=== PATIENT | male | born 1960 | race Two or more races ===

== ENCOUNTER 2024-09-15 02:20 | Emergency (ER) | payer BC, SELFPAY ==
[2024-09-15 02:21] VITALS: BMI 28.3
[2024-09-15 02:39] VITALS: BP 116/76; PULSE 80; RESP 16; TEMP 37.3; O2SAT 98
--- NOTE | 2024-09-15 03:20 | PD.EDADULT ---
ED General RME/HPI General Chief complaint: General Adult/Misc Complain Stated complaint: SWEATING X 1WK Time Seen by Provider: 09/15/24 02:58 Arrival date/time: 09/15/24 02:20 Related Data Previous Rx's ?Medication ?Instructions ?Recorded Hydrocodone/Acetaminophen * (NORCO 1 tab PO Q6H PRN PAIN #30 tabs 08/23/15 7.5/325 *) Allergies Allergy/AdvReac Type Severity Reaction Status Date / Time NKA* Allergy Uncoded 08/22/15 11:38 Course Vital Signs Vital signs: Vital Signs Temperature 99.1 F 09/15/24 02:39 Pulse Rate 80 09/15/24 02:39 Respiratory Rate 16 09/15/24 02:39 Blood Pressure 116/76 09/15/24 02:39 Pulse Oximetry (%) 98 09/15/24 02:39 Oxygen Delivery Method Room Air 09/15/24 02:39 Discharge Plan Prescriptions/Referrals Prescriptions/Med Rec: No Action Hydrocodone/Acetaminophen * (NORCO 7.5/325 *) 1 TAB tablet 1 tab PO Q6H PRN (Reason: PAIN) Qty: 30 0RF Referrals: Temporary Provider,ED [Primary Care Provider] - In 1 week Patient/Caregiver Discharge Instructions Print Language: Czech
--- NOTE | 2024-09-15 03:21 | XR_ITS ---
Examination: AP chest single view Technique AP portable upright chest single view Date and time: September 15, 2024 0420 hours Comparison November 27, 2019 INDICATIONS: Chest pain today. FINDINGS: Normal heart size Lungs are clear and The osseous structures are intact IMPRESSION: No active disease
--- NOTE | 2024-09-15 03:24 | EDRME_ITS ---
Rapid Medical Screening Exam RME Arrival date/time: 09/15/24 02:20 Chief Complaint: General Adult/Misc Complain Time Seen by Provider: 09/15/24 02:58 Vital signs: Vital Signs Temperature 99.1 F 09/15/24 02:39 Pulse Rate 80 09/15/24 02:39 Respiratory Rate 16 09/15/24 02:39 Blood Pressure 116/76 09/15/24 02:39 Pulse Oximetry (%) 98 09/15/24 02:39 Oxygen Delivery Method Room Air 09/15/24 02:39 Vital signs reviewed by provider: Yes RME Narrative: 64-year-old male presents to the ED with a complaint of diaphoresis for the past week, chest pain for the past 3 days. The pain is located anterior left chest with radiation to multiple areas of his chest. states he has been anxious lately but does not know if it is related to his Parkinson's. He denies any nausea or vomiting, shortness of breath. The patient saw his primary care physician on Saturday due to the chest pain but said he was fine, but did not order any specific testing or send him to a hot plate plywood press laborer for further workup and evaluation..
[2024-09-15 04:21] VITALS: BP 120/76; PULSE 75; RESP 18; TEMP 37.2; O2SAT 99
[2024-09-15 04:29] LABS: Basophils % (Auto) 1 % (0-2.5); Eosinophils # (Auto) 0.1 Thou/mm3 (0.0-0.5); Eosinophils % (Auto) 1 % (0-10); Hematocrit 45.1 % (41.0-53.0); Hemoglobin 15.5 g/dL (13.5-16.0); Immature Granulocytes % (Auto) 0 % (0-0); Immature Granulocytes Auto 0.03 Thou/mm3 (0.00-0.00); Lymphocytes # (Auto) 1.3 Thou/mm3 (1.0-4.8); Lymphocytes % (Auto) 17 % (10-50); Mean Corpuscular HGB Conc 34.4 g/dl (31.0-37.0); Mean Corpuscular Hemoglobin 29.9 pg (25.0-35.0); Mean Corpuscular Volume 87 fL (80-100); Monocytes # (Auto) 0.6 Thou/mm3 (0.0-0.8); Monocytes % (Auto) 8 % (0-12); Neutrophils # (Auto) 5.6 Thou/mm3 (1.8-7.7); Neutrophils % (Auto) 73 % (37-80); Nucleated Red Blood Cell % 0 /100 WBC (0); Platelet Count 240 Thou/mm3 (140-440); RDW Standard Deviation 37.4 fL (35.1-43.9); Red Blood Count 5.19 Miln/mm3 (4.50-5.90); White Blood Count 7.7 Thou/mm3 (3.8-10.6)
[2024-09-15 04:43] LABS: Partial Thromboplastin Time 35.9 Seconds (22.0-36.0); Prothrombin Time 10.6 Seconds (9.0-12.2)
[2024-09-15 04:46] LABS: Collection Type, Urine Clean Catch; Squamous Epithelial Cell,Urine 0 /hpf (0-5)
[2024-09-15 04:53] LABS: B-Type Natriuretic Peptide < 20 pg/mL (0-100)
[2024-09-15 04:59] LABS: Alanine Aminotransferase < 7 U/L (10-49); Albumin, Serum 4.7 gm/dL (3.4-4.8); Albumin/Globulin Ratio 1.5 (1.2-2.2); Alkaline Phosphatase 73 U/L (46-116); Anion Gap 10 (7-16); Aspartate Amino Transferase 23 U/L (0-34); BUN/Creatinine Ratio 8 Ratio (12-20); Bilirubin,Total 0.9 mg/dL (0.3-1.2); Blood Urea Nitrogen 9 mg/dL (9-23); Calcium 9.2 mg/dL (8.3-10.6); Calcium (Corrected) 9.2 mg/dL (8.5-10.1); Carbon Dioxide 28.4 mMol/L (20.0-31.0); Chloride 100 mMol/L (98-107); Creatine Kinase 133 U/L (34-171); Creatinine (Component) 1.2 mg/dL (0.6-1.3); Estimated Creatinine Clearance 55.6 mL/min (>60); Globulin 3.1 gm/dL (2.3-3.5); Glucose 116 mg/dL (74-106); LDH (Lactate Dehydrogenase) 148 U/L (120-246); Magnesium 1.9 mg/dL (1.6-2.6); Osmolality,Calculated 275 (275-295); Sodium 138 mMol/L (136-145); Total Protein 7.8 gm/dL (5.7-8.2); Troponin I < 0.020 ng/mL (0.0-0.045); eGFR > 60 See Note
[2024-09-15 05:15] LABS: Bilirubin,Urine Negative (Negative); Blood,Urine Negative (Negative); Clarity,Urine Clear (Clear/Hazy); Color,Urine Lt-Yellow (Lt Yel-Yel); Glucose, Urine Negative (Negative); Ketones,Urine Negative (Negative); Leukocyte Esterase,Urine Negative (Negative); Nitrite,Urine Negative (Negative); PH,Urine 6.5 (5.0-7.0); Protein,Urine Negative (Neg - Trace); RBC,Urine 3 /hpf (0-3); Renal Epithelial Cells,Urine 6 /hpf (0-5); Specific Gravity,Urine 1.014 (1.001-1.035); Urobilinogen,Urine Negative mg/dL (0.0-1.0); WBC,Urine 4 /hpf (0-5)
[2024-09-15 06:00] VITALS: BP 121/67; PULSE 78; RESP 18; TEMP 37.1; O2SAT 99
--- NOTE | 2024-09-15 06:03 | EDRME_ITS ---
Rapid Medical Screening Exam RME Arrival date/time: 09/15/24 02:20 Chief Complaint: General Adult/Misc Complain Time Seen by Provider: 09/15/24 02:58 Vital signs: Vital Signs Temperature 99.1 F 09/15/24 02:39 Pulse Rate 80 09/15/24 02:39 Respiratory Rate 16 09/15/24 02:39 Blood Pressure 116/76 09/15/24 02:39 Pulse Oximetry (%) 98 09/15/24 02:39 Oxygen Delivery Method Room Air 09/15/24 02:39 RME Narrative: 64-year-old male presents to the ED with a complaint of diaphoresis for the past week, chest pain for the past 3 days. The pain is located anterior left chest with radiation to multiple areas of his chest. states he has been anxious lately but does not know if it is related to his Parkinson's. He denies any nausea or vomiting, shortness of breath. The patient saw his primary care physician on Saturday due to the chest pain but said he was fine, but did not order any specific testing or send him to a information technology security manager for further workup and evaluation..
--- NOTE | 2024-09-15 06:07 | PD.EDADULT ---
ED General RME/HPI General Chief complaint: General Adult/Misc Complain Stated complaint: SWEATING X 1WK Time Seen by Provider: 09/15/24 02:58 Arrival date/time: 09/15/24 02:20 64-year-old male presents to the ED with a complaint of diaphoresis for the past week, chest pain for the past 3 days. The pain is located anterior left chest with radiation to multiple areas of his chest. states he has been anxious lately but does not know if it is related to his Parkinson's. He denies any nausea or vomiting, shortness of breath. The patient saw his primary care physician on Saturday due to the chest pain but said he was fine, but did not order any specific testing or send him to a multimedia authoring specialist for further workup and evaluation. Limitations: no limitations RME / HPI RME / HPI narrative: 64-year-old male presents to the ED with a complaint of diaphoresis for the past week, chest pain for the past 3 days. The pain is located anterior left chest with radiation to multiple areas of his chest. states he has been anxious lately but does not know if it is related to his Parkinson's. He denies any nausea or vomiting, shortness of breath. The patient saw his primary care physician on Saturday due to the chest pain but said he was fine, but did not order any specific testing or send him to a multimedia authoring specialist for further workup and evaluation.. Related Data Previous Rx's ?Medication ?Instructions ?Recorded Hydrocodone/Acetaminophen * (NORCO 1 tab PO Q6H PRN PAIN #30 tabs 08/23/15 7.5/325 *) Allergies Allergy/AdvReac Type Severity Reaction Status Date / Time NKA* Allergy Uncoded 08/22/15 11:38 Review of Systems Review of Systems Systems Reviewed: All systems reviewed, normal except as documented ED Exam Narrative Physical exam: Alert and oriented 64-year-old male in no acute distress. Lungs are clear, regular rate and rhythm without murmurs. Abdomen is soft and nontender. No edema to the lower extremities. General Limitations: Present no limitations General appearance: Present alert and in no apparent distress Course Quality Measures none Orders Category Date Time Status XR chest 1V portable Stat Exams 09/15/24 03:21 Taken B-Type Natriuretic Peptide Stat Lab 09/15/24 04:20 Completed CBC Stat Lab 09/15/24 04:20 Completed CK [Creatine Kinase] Stat Lab 09/15/24 04:20 Completed Comprehensive Metabolic Panel Stat Lab 09/15/24 04:20 Completed LDH (Lactate Dehydrogenase) Stat Lab 09/15/24 04:20 Completed Magnesium Stat Lab 09/15/24 04:20 Completed Partial Thromboplastin Time Stat Lab 09/15/24 04:20 Completed Prothrombin Time with INR Stat Lab 09/15/24 04:20 Completed Troponin I Stat Lab 09/15/24 04:20 Completed Urinalysis Stat Lab 09/15/24 04:40 Completed Vital Signs Vital signs: Vital Signs Temperature 99.1 F 09/15/24 02:39 Pulse Rate 80 09/15/24 02:39 Respiratory Rate 16 09/15/24 02:39 Blood Pressure 116/76 09/15/24 02:39 Pulse Oximetry (%) 98 09/15/24 02:39 Oxygen Delivery Method Room Air 09/15/24 02:39 Discharge Plan Plan Patient Disposition: HOME (Self Care) Discharge Disposition comment: Stable and improved Prescriptions/Referrals Prescriptions/Med Rec: No Action Hydrocodone/Acetaminophen * (NORCO 7.5/325 *) 1 TAB tablet 1 tab PO Q6H PRN (Reason: PAIN) Qty: 30 0RF Referrals: Leticia Llamas MD [Physician] - In 1 week (Contact Dr. Llamas's office to schedule an appointment. Make sure to ask if your insurance is excepted.) Temporary Provider,ED [Physician] - In 1 week Problem List Clinical Impression: Chest pain of unknown etiology Patient/Caregiver Discharge Instructions Education Materials: ED Chest Pain, Uncertain Cause Additional Instructions: You will need further workup and evaluation by a multimedia authoring specialist to determine the exact cause of your chest pain. The workup includes stress test, nuclear scan of your heart, and echocardiogram. Follow-up with your primary care physician in 24 to 48 hours. Return to the ED for any new or worsening symptoms. Print Language: Maldivian Stand Alone Forms: Georgina Award Info., Patient Portal Info Letter PA/ELECTRONIC TEST TECHNICIAN Supervising Physician PA/ELECTRONIC TEST TECHNICIAN Supervising Physician: Dr. Comfort DIAZ Clinical Information Provided by: patient and spouse Medical Records reviewed None Meds/Rx considered, not ordered None Labs/Rad/Tests considered, not ordered None Chronic Illness/Social Conditions which may negatively complicate care or outcome(s)-explain: other (Parkinsonism) EKG Interpretation EKG #1: EKG Interpretation: Sinus rhythm without ectopy or ST/T wave changes, And no STEMI, rate 79, DC interval 143, QRS 82, QT/QTc 346/381. Labs Labs: Interpreted by mt Lab(s) Interpretation(s): CBC reveals a normal white count, normal H and H, normal platelets. Coags are normal. Chemistry panel reveals normal electrolytes with the exception of glucose 116 otherwise normal. LDH is normal at 148, CK normal at 133, troponin is less than 0.020, BNP is less than 20. Urinalysis is normal with the exception of renal epithelial cells x 6. Imaging Imaging interpretation: Interpreted by mt Imaging Interpretation(s): No infiltrates and no evidence of CHF. Medication Administration(s) none Diagnosis Differential Diagnosis ED Complaint MDM: ACS, CHF, pneumonia, chest wall pain, anxiety Diagnoses ruled out and/or further discussions: ACS, CHF, pneumonia
== END 2024-09-15 06:32 | disposition home or self-care (01) ==
PROVIDERS: Physician Assistant; Emergency Provider Emergency Medicine; PCP Internal Medicine
DX: R07.9 Chest pain, unspecified (principal); R61 Generalized hyperhidrosis
CPT/HCPCS: 36415; 71045; 80053; 81001; 82550; 83615; 83735; 83880; 84484; 85025; 85610; 85730; 99283

== ENCOUNTER 2025-02-12 20:44 | Emergency (ER) | payer MEDICARE, MEDICAID, SELFPAY ==
[2025-02-12 20:46] VITALS: BMI 22.1
--- NOTE | 2025-02-12 20:49 | EKG_ITS ---
[facility] Test Date: 2025-02-12 Pat Name: ABDOULAYE PEREZ Department: Room: - Gender: Male Assistant Professor Of Art: : 1960 Requested By: Asa Sloan Order Number: [id number] Reading MD: Asa Sloan Measurements Intervals [place] Rate: 92 P: 68 DC: 132 QRS: 52 QRSD: 83 T: 54 QT: 337 QTc: 417 Interpretive Statements SINUS RHYTHM No previous ECG available for comparison /store/S0/[id number]
[2025-02-12 21:52] VITALS: BP 154/90; PULSE 91; RESP 19; TEMP 36.6; O2SAT 98
--- NOTE | 2025-02-12 22:01 | XR_ITS ---
EXAMINATION: PA chest single view TECHNIQUE: Upright PA chest single view Date and time: February 12, 2025, 10 0 6:00 p.m., comparison September 15, 2024 INDICATIONS: Chest pain today. FINDINGS: Normal heart size. No pneumonia or pulmonary edema. Intact osseous structures IMPRESSION: No pneumonia or pulmonary edema
--- NOTE | 2025-02-12 22:02 | EDRME_ITS ---
Rapid Medical Screening Exam [facility] Arrival date/time: 02/12/25 20:44 64M with history of HLD and Parkinson's presents to ED with 30 min of CP and sweating per . Patient denies SOB and URI symptoms. Chief Complaint: Chest Pain Vital signs: Vital Signs Temperature 97.9 F 02/12/25 21:52 Pulse Rate 91 02/12/25 21:52 Respiratory Rate 19 02/12/25 21:52 Blood Pressure 154/90 H 02/12/25 21:52 Pulse Oximetry (%) 98 02/12/25 21:52 Oxygen Delivery Method Room Air 02/12/25 21:52
[2025-02-12 22:26] LABS: Basophils # (Auto) 0.0 Thou/mm3 (0.0-0.2); Basophils % (Auto) 1 % (0-2.5); Eosinophils # (Auto) 0.1 Thou/mm3 (0.0-0.5); Eosinophils % (Auto) 2 % (0-10); Hematocrit 40.9 % (41.0-53.0); Hemoglobin 13.3 g/dL (13.5-16.0); Immature Granulocytes Auto 0.03 Thou/mm3 (0.00-0.00); Lymphocytes # (Auto) 0.9 Thou/mm3 (1.0-4.8); Lymphocytes % (Auto) 16 % (10-50); Mean Corpuscular HGB Conc 32.5 g/dl (31.0-37.0); Mean Corpuscular Hemoglobin 29.6 pg (25.0-35.0); Mean Corpuscular Volume 91 fL (80-100); Monocytes # (Auto) 0.6 Thou/mm3 (0.0-0.8); Monocytes % (Auto) 9 % (0-12); Neutrophils # (Auto) 4.4 Thou/mm3 (1.8-7.7); Neutrophils % (Auto) 73 % (37-80); Nucleated Red Blood Cell # 0.00 Thou/mm3 (0.00-0.00); Nucleated Red Blood Cell % 0 /100 WBC (0); Platelet Count 227 Thou/mm3 (140-440); RDW Standard Deviation 37.1 fL (35.1-43.9); Red Blood Count 4.50 Miln/mm3 (4.50-5.90); White Blood Count 6.0 Thou/mm3 (3.8-10.6)
[2025-02-12 22:44] LABS: INR 0.9 (0.9-1.3); Partial Thromboplastin Time 33.2 Seconds (22.0-36.0); Prothrombin Time 9.9 Seconds (9.0-12.2)
[2025-02-12 22:52] LABS: Alanine Aminotransferase 9 U/L (10-49); Albumin, Serum 4.5 gm/dL (3.4-4.8); Albumin/Globulin Ratio 1.4 (1.2-2.2); Alkaline Phosphatase 72 U/L (46-116); Anion Gap 10 (7-16); BUN/Creatinine Ratio 8 Ratio (12-20); Bilirubin,Total 0.6 mg/dL (0.3-1.2); Blood Urea Nitrogen 10 mg/dL (9-23); Calcium 9.9 mg/dL (8.3-10.6); Calcium (Corrected) 9.9 mg/dL (8.5-10.1); Carbon Dioxide 28.2 mMol/L (20.0-31.0); Chloride 103 mMol/L (98-107); Creatinine (Component) 1.2 mg/dL (0.6-1.3); Estimated Creatinine Clearance 49.9 mL/min (>60); Globulin 3.2 gm/dL (2.3-3.5); Glucose 113 mg/dL (74-106); Osmolality,Calculated 281 (275-295); Potassium 4.0 mMol/L (3.4-5.1); Sodium 141 mMol/L (136-145); Total Protein 7.7 gm/dL (5.7-8.2); Troponin I < 0.020 ng/mL (0.0-0.045); eGFR > 60 See Note
[2025-02-12 23:12] LABS: Aspartate Amino Transferase 18 U/L (0-34)
[2025-02-13 01:00] VITALS: BP 165/91; PULSE 87; RESP 18; TEMP 36.9; O2SAT 99
--- NOTE | 2025-02-13 01:26 | EDNOTE_ITS ---
ED Chest Pain RME/HPI General Chief Complaint: Chest Pain Stated Complaint: CHEST PAIN AND DIZZINESS, SHAKING: HX PARKINSONS Arrival date/time: 02/12/25 20:44 RME / HPI RME / HPI narrative: 02/12/25 20:44 64M with history of HLD and Parkinson's presents to ED with 30 min of CP and sweating per . Patient denies SOB and URI symptoms. DR. CANALES MAIN ED EVALUATION: Patient with recurrent episodes of left precordial chest pain vaguely described as intermittent in nature throughout the day, denies associated nausea, vomiting, palpitations, near-syncope, and lightheadedness. Pain decreases with activity and deep inspiration. Cardiac Risk Factors: Negative for HTN, Type II DM, FHx or tobacco use. Does report elevated cholesterol. PE Risk Factors: Negative recent travbel, HRT, prior DVT, recent surgery, or tobacoo use. PMH: Parkinson's and Hypercholesterolemia PSH: Non-contributory Social: Non-smoker, Non-drinker, No illicit drug abuse Related Data Previous Rx's ?Medication ?Instructions ?Recorded Hydrocodone/Acetaminophen * (NORCO 1 tab PO Q6H PRN [place] #30 tabs 08/23/15 7.5/325 *) amlodipine 2.5 mg tablet 2.5 mg PO QDAY #30 tabs 02/03 05/30 aspirin 81 mg tablet,delayed 81 mg PO QDAY #30 tabs release (Adult Low Dose Aspirin) Allergies Allergy/AdvReac Type Severity Reaction Status Date / Time No Known Allergies Allergy Verified 02/12/25 20:46 Review of Systems Review of Systems Systems Reviewed: All systems reviewed, normal except as documented Past Medical History Past Medical History NEUROLOGIC: Positive Parkinson's Disease CARDIAC: Positive Hypercholesterolemia ED Exam Narrative Physical exam: GEN. APPEARANCE: The patient is alert awake oriented X-3 in no distress, lying down comfortably, does not look ill/toxic. Patient has good eye contact. Patient is cooperative, with mask-like facies , mild tachycardia, no active chest pain. VITALS: All vitals were reviewed and the pulse ox is 99% on room air which is normal according to my interpretation. HEENT: Normocephalic, atraumatic. Pupils are equal and reactive. Oral mucosa is moist. Patent Nares NECK: Supple, nontender, no thyromegaly, no meningismus, no JVD, no step offs CHEST: Symmetrical, atraumatic, and with equal expansion , No reproducible tenderness, no deformity and no crepitus. CARDIOVASCULAR: Tachycardic, no murmur or gallop rub or extra beats. LUNGS: Clear to auscultation bilaterally with symmetrical chest rise. No laboring tachypnea or wheezing. No intercostal subcostal retraction. No rales and no rhonchi. ABDOMEN: Soft, flat, nontender to palpation, no guarding or rebound tenderness. There are no abnormal masses palpated. Active and normal bowel sounds. EXTREMITIES: Nontender. No edema. No cyanosis. Patient is able to move all 4 extremities well, with full ROM and good CSM. SKIN: Warm and dry, no jaundice or rashes noted. MUSCULOSKELETAL: No lubar or midline bony tenderness. There is no CVA tenderness. No paraspinal muscle spasm or tenderness. NEURO: Patient is STEVENS x 4, Cranial nerves II through XII grossly intact. There is no focal neurologic deficits noted. GCS is 15, PNS and SUBSTANCE ABUSE CLINICIAN appear grossly intact. PSYCHIATRIC: Patient is in normal mood and affect, cooperative, no SI or HI or h allucinations. Course Quality Measures none Orders Category Date Time Status EKG (ED ONLY) *Do not use* NOW Care 02/12/25 20:49 Completed EKG (ED ONLY) *Do not use* NOW Care 02/13/25 01:44 Completed EKG (ED Only) Stat Exams 02/12/25 20:49 Draft EKG (ED Only) Stat Exams 02/13/25 01:44 Draft XR chest 1V portable Stat Exams 02/12/25 22:01 Completed CBC Stat Lab 02/12/25 22:18 Completed Comprehensive Metabolic Panel Stat Lab 02/12/25 22:18 Completed Partial Thromboplastin Time Stat Lab 02/12/25 22:18 Completed Prothrombin Time with INR Stat Lab 02/12/25 22:18 Completed Troponin I Stat Lab 02/12/25 22:18 Completed Troponin I Stat Lab 02/13/25 01:16 Completed Aspirin Med 02/12/25 22:01 Discontinued 325 mg PO X1 ONE Vital Signs Vital signs: Vital Signs Temperature 97.9 F 02/12/25 21:52 Pulse Rate 91 02/12/25 21:52 Respiratory Rate 19 02/12/25 21:52 Blood Pressure 154/90 H 02/12/25 21:52 Pulse Oximetry (%) 98 02/12/25 21:52 Oxygen Delivery Method Room Air 02/12/25 21:52 Chest Pain MDM Narrative MDM Narrative:: Scribe Attestation: I, Serene Messer, am scribing for and in the presence of Dr. Canales. Provider Notation: Although this document has been carefully reviewed, there may still be some phonetic and other typographical errors. These errors are purely grammatical due to imperfections in the software program and should not be construed in any way to compromise the substance of the patient's medical care during this visit. Patient with recurrent episodes of left precordial chest pain vaguely described as intermittent in nature throughout the day, denies associated nausea, vomiting, palpitations, near-syncope, and lightheadedness. Please see PE findings. Laboratory markers including CBC and serum chemistries demonstrate WBC of 6.0, Hemoglobin of 13.3, and normal platelet count. Serum chemistries demonstrate normal renal function, mildly elevated blood sugar of 113, and undetected Troponin I. EKG was unremark for acute ischemic changes or evidence of pericraditis. CXR within normal limits. Administered full dose of ASA upon arrival. Patient remained otherwise stale course and underwent seral EKG and enzymatic analysis. Second EKG and Troponin I unremarkable for ischemia, pericarditis, or signs of infarction. Final diagnoses include HTN and non- specific chest pain. Patient will be discharged home on ASA and Amlodipine. Patient data External records reviewed:: [facility] previous records (Reviewed prior ED records from 09/15/24. Patient was seen for Chest pain of unknown etiology.) Clinical information provided by:: patient Social determinants that could affect healthcare access:: none Patient has the following chronic illnesses:: Hypercholesterolemia, Parkinson's Disease How is presenting disease/condition affected by chronic disease/condition?: exacerbated by Evaluation data The following diagnostics were reviewed and interpreted by me:: lab results, radiology exam(s) and EKG tracing(s) (EKG (1) at 21:47 shows normal sinus rhythm at 92, normal axis, no ectopy, no signs of acute ischemia, per my interpretation. EKG (2) at 01:53 shows normal sinus rhythm at 90, normal axis, no ectopy, no signs of acute ischemia, per my interpretation.) Lab and/or radiology exams considered but not ordered:: None Interpretation Summary: RADIOLOGY Chest X-Ray: FINDINGS: Normal heart size. No pneumonia or pulmonary edema. Intact osseous structures IMPRESSION: No pneumonia or pulmonary edema Medications / Prescriptions Medications or Prescriptions considered but not ordered:: None Medication administrations:: Medication Administration History Discontinued Medications Aspirin (Aspirin 325 Mg Tablet) 325 mg PO X1 ONE Stop: 02/12/25 22:02 Last Admin: 02/12/25 22:17 Dose: 325 mg Documented By: BD See above if any Consultations Consultation(s) initiated? (list below): No Diagnosis Chest Pain Differential Diagnosis: pneumothorax, stable angina, unstable angina pectoris, atypical chest pain, st elevation myocardial infarction, costochondritis and chest pain Most likely diagnosis given after review of the tests above:: Non-specific chest pain, HTN Admission Indicated Admission indicated?: not indicated Explain why admission is indicated or not indicated:: Patient does not meet admission criteria Admission Request Was there a request for admission?: No Disposition Plan Disposition Plan: Discharge Discharge Attestation Discharge Attestation: The patient and all family members were given an opportunity to ask questions and understood the discharge instructions. Discharge instructions specifically effects, indications for sooner follow up or return to the emergency department, and the expected course of current diagnosis. Patient condition: Stable Discharge Plan Plan Patient Disposition: HOME (Self Care) Prescriptions/Referrals Prescriptions/Med Rec: New amlodipine 2.5 mg tablet 2.5 mg PO QDAY Qty: 30 1RF aspirin [Adult Low Dose Aspirin] 81 mg tablet,delayed release (DR/EC) 81 mg PO QDAY Qty: 30 2RF Rx Instructions: With food No Action Hydrocodone/Acetaminophen * (NORCO 7.5/325 *) 1 TAB tablet 1 tab PO Q6H PRN (Reason: PAIN) Qty: 30 0RF Referrals: Leatha Mae MD [Primary Care Provider] - In 1 week Problem List Clinical Impression: Nonspecific chest pain, Hypertension Impression comment: Nonspecific chest pain Patient/Caregiver Discharge Instructions Discharge Activity: activity as tolerated Diet Instructions: Low-salt Education Materials: ED Chest Pain, Uncertain Cause Additional Instructions: Begin both baby aspirin and low-dose amlodipine daily in the AM. Follow-up with primary care doctor in 1 to 2 weeks for consideration of stress testing if pain persist. Return if worsening Print Language: Mongolian Stand Alone Forms: Georgina Award Info., Patient Portal Info Letter
[2025-02-13 01:42] LABS: Troponin I < 0.020 ng/mL (0.0-0.045)
--- NOTE | 2025-02-13 01:44 | EKG_ITS ---
[facility] Test Date: 2025-02-13 Pat Name: ABDOULAYE PEREZ Department: Room: - Gender: Male Obedience Trainer: : 1960 Requested By: Gabe Casas Order Number: [id number] Reading MD: Gabe Casas Measurements Intervals [place] Rate: 90 P: 74 [place]: 116 QRS: 60 QRSD: 82 T: 57 QT: 346 QTc: 425 Interpretive Statements SINUS RHYTHM WITH SHORT [place] INTERVAL Compared to ECG 02/12/2025 21:47:27 Short [place] interval now present /store/S0/[id number]
[2025-02-13 02:25] VITALS: BP 151/85; PULSE 82; RESP 19; TEMP 37.1; O2SAT 98
== END 2025-02-13 02:30 | disposition home or self-care (01) ==
PROVIDERS: Physician Assistant; Emergency Provider Emergency Medicine; PCP Internal Medicine
DX: R07.89 Other chest pain (principal)
CPT/HCPCS: 36415; 71045; 80053; 84484; 85025; 85610; 85730; 93005; 99284; A9270